=== PATIENT | male | born 1950 | race African-American/Black ===

== ENCOUNTER 2020-02-04 13:49 | Emergency (ER) | payer MEDICARE, MEDICAID ==
[~2020-02-04] VITALS: Ht 185.4 cm; Wt 136.1 kg
--- NOTE | 2020-02-04 13:50 | NUR ---
ED Nurse Note: Pt BIBA RA 15 from home d/t weakness. Per EMS, BS was 38. D10W 250 ml administered and BS 120 right before arrival. nad noted, vss, bs 93. pt has iv left ac 18 gauge, sent blood to lab.
[2020-02-04 13:58] VITALS: BP 145/74
[2020-02-04 14:14] LABS: HEMATOCRIT 36.9 % (42.0-52.0); MEAN CORPUSCULAR VOLUME 90 FL (80-99); PLATELET COUNT 199 K/UL (150-450); RED BLOOD COUNT 4.11 M/UL (4.70-6.10); WHITE BLOOD COUNT 7.1 K/UL (4.8-10.8)
[2020-02-04 14:23] LABS: CALCIUM 7.8 MG/DL (8.5-10.1); CREATININE 2.2 MG/DL (0.55-1.30)
[2020-02-04 14:27] LABS: ALBUMIN 2.8 G/DL (3.4-5.0); ALBUMIN/GLOBULIN RATIO 0.6 (1.0-2.7); BILIRUBIN,TOTAL 0.5 MG/DL (0.2-1.0)
--- NOTE | 2020-02-04 14:50 | NUR ---
ED Nurse Note: rechecked bs after pt ate sandwich. bs 104.
--- NOTE | 2020-02-04 15:30 | NUR ---
ED Nurse Note: oxygen 88% on room air. put pt on nc 3l. oxygen went up to 95%.
--- NOTE | 2020-02-04 15:56 | NUR ---
ED Nurse Note: rechecked bs 114.
[2020-02-04] MEDS ORDERED: AMLODIPINE BES2.5 MG ORAL (16:09)
[2020-02-04] MEDS ORDERED: LISINOPRIL5 MG ORAL (16:09)
[2020-02-04] MEDS ORDERED: FUROSEMIDE40 MG ORAL (16:09)
[2020-02-04] MEDS ORDERED: ASPIRIN81 MG ORAL (16:09)
[2020-02-04] MEDS ORDERED: GLIPIZIDE5 MG ORAL (16:09)
[2020-02-04] MEDS ORDERED: CARVEDILOL3.125 MG ORAL (16:09)
[2020-02-04] MEDS ORDERED: PLAVIX75 MG ORAL (16:09)
--- NOTE | 2020-02-04 18:28 | NUR ---
ED Nurse Note: Report was given to MERLE Rizvi at [facility]
--- NOTE | 2020-02-04 18:48 | Emergency Room Report ---
History of Present Illness General Chief Complaint: Generalized Weakness Source: Patient, EMS Present Illness HPI 69-year-old male presents for weakness. Per EMS patient at home today had Accu- Chek in the 30s. Given glucose. Feels better now. History of diabetes. Takes Metformin and glipizide. States he took his medication this morning but did not eat. Denies chest pain or shortness of breath. Denies fevers or chills. No other aggravating relieving factors. Denies any other associated symptoms Allergies: Coded Allergies: No Known Allergies (Unverified , 02/04/20) COVID-19 Screening Contact w/high risk pt: No Experienced COVID-19 symptoms?: No COVID-19 Testing performed COMMUNITY DEVELOPMENT MANAGER: No Patient History Past Medical History: DM Past Surgical History: none Pertinent Family History: none Social History: Denies: smoking, alcohol use, drug use Immunizations: UTD Reviewed Nursing Documentation: PMH: Agreed; PSxH: Agreed Nursing Documentation-PMH Past Medical History: No History, Except For Hx Diabetes: Yes Review of Systems All Other Systems: negative except mentioned in HPI Physical Exam Vital Signs Date Time Temp Pulse Resp B/P (MAP) Pulse Ox O2 Delivery O2 Flow Rate FiO2 02/04/20 13:46 98.2 76 20 145/74 (97) 98 Room Air Sp02 EP Interpretation: reviewed, normal General Appearance: no apparent distress, alert, GCS 15, non-toxic Head: normocephalic, atraumatic Eyes: bilateral eye normal inspection, bilateral eye PERRL ENT: hearing grossly normal, normal pharynx, no angioedema, normal voice Neck: full range of motion, supple/symm/no masses Respiratory: chest non-tender, lungs clear, normal breath sounds, speaking full sentences Cardiovascular #1: regular rate, rhythm, no edema Cardiovascular #2: 2+ carotid (R), 2+ carotid (L), 2+ radial (R), 2+ radial (L), 2+ dorsalis pedis (R), 2+ dorsalis pedis (L) Gastrointestinal: normal bowel sounds, non tender, soft, non-distended, no guarding, no rebound Rectal: deferred Genitourinary: normal inspection, no CVA tenderness Musculoskeletal: back normal, normal range of motion, gait/station normal, non- tender Neurologic: alert, motor strength/tone normal, oriented x3, sensory intact, responsive, speech normal Psychiatric: judgement/insight normal, memory normal, mood/affect normal, no suicidal/homicidal ideation Reflexes: 3+ bicep (R), 3+ bicep (L), 3+ tricep (R), 3+ tricep (L), 3+ knee (R), 3+ knee (L) Skin: no rash Lymphatic: no adenopathy Medical Decision Making Diagnostic Impression: Primary Impression: Hypoglycemia Additional Impression: Renal insufficiency ER Course Hospital Course 69-year-old male presenting to ED with generalized weakness, low FS in field Differential diagnoses include: dehyration, sepsis, hypoglycemia Clinical course Patient placed on stretcher. 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 After initial history and physical I ordered labs, IV fluids Labs-glucose 104, BUN/Cr elevated, no leukocytosis, hb/hct stable Because patient is on long-acting oral medications, it is possible that he can again become hypoglycemic. Started on D5 fluids. because of insurance patient will be transferred i. I feel this is a highly complex case requiring extensive working including EKG/Rhythm strip, Xray/CT/US, Blood/urine lab work, repeat exams while in ED, an d administration of strong opiates/narcotics for pain control, admission to hospital or close patient follow up. diagnosis - hypoglycemia, renal insufficiency transferred in serious condition Laboratory Tests Test 02/04/20 13:53 02/04/20 14:50 02/04/20 15:51 02/04/20 17:58 White Blood Count 7.1 K/UL (4.8-10.8) Red Blood Count 4.11 M/UL (4.70-6.10) L Hemoglobin 12.0 G/DL (14.2-18.0) L Hematocrit 36.9 % (42.0-52.0) L Mean Corpuscular Volume 90 FL (80-99) Mean Corpuscular Hemoglobin 29.1 PG (27.0-31.0) Mean Corpuscular Hemoglobin Concent 32.4 G/DL (32.0-36.0) Red Cell Distribution Width 13.0 % (11.6-14.8) Platelet Count 199 K/UL (150-450) Mean Platelet Volume 8.4 FL (6.5-10.1) Neutrophils (%) (Auto) % (45.0-75.0) Lymphocytes (%) (Auto) % (20.0-45.0) Monocytes (%) (Auto) % (1.0-10.0) Eosinophils (%) (Auto) % (0.0-3.0) Basophils (%) (Auto) % (0.0-2.0) Differential Total Cells Counted 100 Neutrophils % (Manual) 83 % (45-75) H Lymphocytes % (Manual) 8 % (20-45) L Monocytes % (Manual) 9 % (1-10) Eosinophils % (Manual) 0 % (0-3) Basophils % (Manual) 0 % (0-2) Band Neutrophils 0 % (0-8) Platelet Estimate Adequate Platelet Morphology Normal Red Blood Cell Morphology Normal Sodium Level 129 MMOL/L (136-145) L Potassium Level 4.0 MMOL/L (3.5-5.1) Chloride Level 97 MMOL/L (98-107) L Carbon Dioxide Level 21 MMOL/L (21-32) Anion Gap 11 mmol/L (5-15) Blood Urea Nitrogen 34 mg/dL (7-18) H Creatinine 2.2 MG/DL (0.55-1.30) H Estimat Glomerular Filtration Rate 30.0 mL/min (>60) Glucose Level 111 MG/DL (74-106) H Calcium Level 7.8 MG/DL (8.5-10.1) L Total Bilirubin 0.5 MG/DL (0.2-1.0) Aspartate Amino Transf (AST/SGOT) 47 U/L (15-37) H Alanine Aminotransferase (ALT/SGPT) 30 U/L (12-78) Alkaline Phosphatase 51 U/L (46-116) Total Protein 7.4 G/DL (6.4-8.2) Albumin 2.8 G/DL (3.4-5.0) L Globulin 4.6 g/dL Albumin/Globulin Ratio 0.6 (1.0-2.7) L Lipase 69 U/L (73-393) L POC Whole Blood Glucose 104 MG/DL (74-106) 113 MG/DL (74-106) H 77 MG/DL (74-106) Last Vital Signs Date Time Temp Pulse Resp B/P (MAP) Pulse Ox O2 Delivery O2 Flow Rate FiO2 02/04/20 13:58 98.2 20 145/74 98 Room Air 128/20 13:58 76 Status: improved Disposition: SHORT-TERM HOSP Condition: Serious Referrals: [facility] (PCP) Willie Johns MD Feb 04, 2020 18:48
[2020-02-04 18:56] VITALS: BP 140/74
[2020-02-04 19:06] LABS: APPEARANCE,URINE SLIGHTLY CLOUDY; BILIRUBIN, URINE NEGATIVE (NEGATIVE); GLUCOSE, URINE (UA) NEGATIVE (NEGATIVE); KETONES,URINE NEGATIVE (NEGATIVE); LEUKOCYTE ESTERASE ,URINE 1+ (NEGATIVE); NITRITE,URINE NEGATIVE (NEGATIVE); PH,URINE 5 (4.5-8.0); PROTEIN,URINE 4+ (NEGATIVE); UROBILINOGEN,URINE NORMAL MG/DL (0.0-1.0)
[2020-02-04 19:10] LABS: COLOR,URINE YELLOW
--- NOTE | 2020-02-04 19:10 | NUR ---
ED Nurse Note: pt transferred to [facility] [place]. pt transferred by [facility] [id number] with all belongings. vss at time of discharge.
--- NOTE | 2020-02-04 19:13 | NUR ---
HAND-OFF: Report given to amber pavon.
[2020-02-04 19:14] VITALS: BP 128/75
== END 2020-02-04 19:15 | disposition short-term general hospital (02) ==
LOC: EDBD 13:49 → EMR 14:23
DX: E11.65 Type 2 diabetes mellitus with hyperglycemia (principal); N28.9 Disorder of kidney and ureter, unspecified; Z79.84 Long term (current) use of oral hypoglycemic drugs
CPT/HCPCS: 36415; 80053; 81003; 82962; 83690; 85007; 85025; 96365; 96366; 99285